=== PATIENT | female | born 1945 | race Caucasian/White ===

== ENCOUNTER → 2021-11-08 | Day surgery (SDC) | payer MEDICARE ==
[~2021-11-08] MED LIST: ASPIR 8181 MG PO; CALCIUM PO; HYDROCHLOROTHIA25 MG PO; LIDOCAINE HCL 2% LOCAL INJ 5 ML SDV VIAL INJ ONE; METOPROLOL PO; PANTOPRAZOLE SO40 MG PO; POTASSIUM PO; PROBIOTIC & AC1 EACH PO; PROPOFOL IV EMULSION 10 MG/ML 20 ML VIAL ONE; VITAMIN B-12 PO; VITAMIN B-650 MG PO; VITAMIN D35000 UNIT PO; Z.0.ATENOLOL25 MG PO; Z.0.DICYCLOMINE HCL1 PO; Z.0.LIPITOR10 MG PO; Z.0.PREVACID30 MG PO
[2021-11-08 09:04] LABS: HEMATOCRIT 45.1 % (34.2-44.1); LYMPHOCYTES # (AUTO) 1.3 (1.0-3.2); LYMPHOCYTES % 33.3 % (18.0-39.1); MEAN CORPUSCULAR HEMOGLOBIN 31.1 pg (28-32); MEAN CORPUSCULAR HGB CONC 33.3 g/dL (31-35); MEAN CORPUSCULAR VOLUME 93.6 fL (81-99); MONOCYTES # (AUTO) 0.4 (0.2-0.8); MONOCYTES % 10.2 % (4.4-11.3); NEUTROPHILS # (AUTO) 2.2 (2.1-6.9); NEUTROPHILS % 54.3 % (38.7-80.0); PLATELET COUNT 191 x10e3/uL (140-360); RED BLOOD COUNT 4.82 x10e6/uL (3.6-5.1); RED CELL DISTRIBUTION WIDTH 12.1 % (11.7-14.4)
[2021-11-08 12:10] VITALS: BP 126/60
== END | disposition home or self-care (01) ==
LOC: OR 08:20
PROVIDERS: ATTEND Internal Medicine Gastroenterology
DX: K29.50 Unspecified chronic gastritis without bleeding (principal); Z86.010 Personal history of colon polyps; K31.7 Polyp of stomach and duodenum; K29.60 Other gastritis without bleeding; K20.90 Esophagitis, unspecified without bleeding; K31.89 Other diseases of stomach and duodenum; K57.30 Diverticulosis of large intestine without perforation or abscess without bleeding; K64.8 Other hemorrhoids; I10 Essential (primary) hypertension; E78.5 Hyperlipidemia, unspecified; Z88.6 Allergy status to analgesic agent; Z01.810 Encounter for preprocedural cardiovascular examination; Z01.812 Encounter for preprocedural laboratory examination; Z20.822 Contact with and (suspected) exposure to COVID-19; Z79.899 Other long term (current) drug therapy
CPT/HCPCS: 36415; 43239; 45378; 85025; 88305; 88312; 93005; C9113; U0002; J2001